=== PATIENT | male | born 1960 | race Caucasian/White ===

== ENCOUNTER 2024-12-11 07:51 | Outpatient (CLI) | payer BC, SELFPAY | END 2024-12-11 07:52 | disposition home or self-care (01) | LOC: CT 07:51 | PROVIDERS: Visit Provider Orthopaedic Surgery Sports Medicine | DX: M19.011 Primary osteoarthritis, right shoulder (principal); Z01.818 Encounter for other preprocedural examination | CPT/HCPCS: 73200 ==

== ENCOUNTER 2025-01-17 07:02 | Day surgery (SDC) | payer BC, SELFPAY ==
[2025-01-17] VITALS (20 sets, daily range): BP systolic 121–145; BP diastolic 72–95; PULSE 43–64; RESP 14–20; TEMP 35.8–36.7; O2SAT 93–97; BMI 26.4
--- NOTE | 2025-01-17 07:28 | W.PM.H&PU ---
History & Physical Update History & Physical Update H&P Reviewed and patient assessed: No changes noted
[2025-01-17] MEDS: LACTATED RINGERS 1000 ML 1,000 ML 100 ML IV ×2 (08:00→10:23)
[2025-01-17] MEDS: SODIUM CHLORIDE 0.9 % (FLUSH) 10 ML SYRINGE IVF (08:00)
[2025-01-17] MEDS: OXYCODONE (CR) 10 MG TAB.ER.12H PO (08:08)
[2025-01-17] MEDS: ACETAMINOPHEN 500 MG TABLET 1000 MG PO (08:08)
[2025-01-17] MEDS: MIDAZOLAM HCL 1 MG/ML inj IVP (08:12)
[2025-01-17] MEDS: TRANEXAMIC ACID 100 MG/ML INJ 1000 MG IV (09:28)
--- NOTE | 2025-01-17 11:30 | P.ORPRC_ITS ---
Procedure Note Date of procedure: 01/17/25 Procedure: PREOPERATIVE DIAGNOSIS: 1. Right shoulder osteoarthrosis, primary, severe POSTOPERATIVE DIAGNOSIS: 1. Right shoulder osteoarthrosis, primary, severe 2. Right shoulder long head of biceps tendinopathy / tenosynovitis PROCEDURE: 1. Right total shoulder arthroplasty-anatomic. 2. Right shoulder long head of biceps open tenodesis SURGEON: Michael Valdez MD. ENVIRONMENTAL SERVICES COORDINATOR: Bryan FINLEY - Of note, a skilled public aid eligibility assistant was critical for this case to aid in patient positioning, tissue retraction, limb manipulation/positioning, awareness of and protection of critical structures, and closure. ANESTHESIA: General plus interscalene block EBL: 200 mL IMPLANTS: [place] INHANCE: XL Blazer. 54 x 19 mm centered humeral head with centralized Brito taper; XL glenoid component (cemented ring) - metal central peg COMPLICATIONS: None evident INDICATIONS: The patient is a pleasant 64-year-old male who has experienced severe right shoulder pain and difficulty with use. Workup included x-rays which revealed severe osteoarthrosis. Physical exam was consistent with associated pain. Given the deformity, the dysfunction, and the pain, recommendation was made for surgery. DESCRIPTION OF PROCEDURE: Following a thorough discussion of risks, benefits, and alternatives, consent was obtained and the right shoulder was marked. The patient was brought to the operating room and placed supine on the operating table. Induction of anesthesia was undertaken. 2 g IV Ancef and 1 g tranexamic acid was administered within 1 hr of incision preoperatively. Appropriate time-out was performed identifying proper patient, site, and procedure. The operative extremity was prepped and draped in the appropriate sterile fashion using ChloraPrep after the patient was positioned in the beach chair with head in neutral alignment and all bony prominences well padded. A longitudinal incision was made for deltopectoral approach. Deltoid and cephalic vein were retracted laterally but eventually the vein was cauterized due to a small rent in the vessel. The clavipectoral fascia was identified and divided longitudinally staying lateral to the conjoined tendon / coracoid. The conjoined tendon was protected with a blunt Hohmann. The long head of the biceps tendon was identified and found to have significant flattening, partial-thickness tearing, and significant tenosynovitis. The tenodesis was performed suturing it to the pectoralis major tendon at their confluence. The upper 1/4 of the pectoralis major was released from its insertion. The superior portion of the rotator cuff was inspected and found to have good integrity. The subscapularis was released from its lesser tuberosity via a tenotomy down through the 3 sisters which were cauterized. After releasing the subscapularis, the capsule was released from the inferior humeral neck allowing us to remove the inferior humeral head osteophyte. The subscapularis was also released from the superior glenohumeral ligament and middle glenohumeral ligament. It was then tucked into the subscapularis fossa anteriorly, and we turned our attention to the humeral preparation. The humerus was dislocated, and humeral head cut performed paying attention to the patient's bad river band version anatomy and consistet with the preop plan. The guide pin was drilled through the lateral humeral cortex, a Blazer trial consistent with the preop plan was applied, and the humerus was planed. The humerus was then protected with the Blazer and attention was turned to the glenoid preparation. The humerus was retracted posteriorly. The subscap was protected anteriorly and the labrum was released along the glenoid anterior, inferior and posteroinferior regions via combination of Bovie cautery or 15 blade. Based on the preoperative CT scan of the shoulder, the shoulder was found have approximately 21 ? of retroversion. The preop plan targeted a resting position of 8 ? retroversion upon completion of the glenoid prep. The 3D printed guide was applied, the guide pin was placed and the subsequent preparation performed with Reamer down to cortical/subchondral bone. Cement was mixed on the back table and filled the ring after thorough irrigation with normal saline was performed followed by suction and drying of the bone. The real implant was opened and inserted with excellent surrounding fit circumferentially. We then turned our attention back to the humerus. Consistent with the preop planning, the appropriate head was selected, trialed, and found have an excellent fixation and tension. 50% bounce-back was visualized with posterior directed force, internal rotation was achieved to 60? comfortably while the shoulder was abducted to 90?, and the conjoined tendon had good tension. At this stage, a 3 min Betadine soak was performed followed by a thorough irrigation with normal saline. Subscapularis was reapproximated with # 1 PDS (x 4). The rotator interval was reapproximated as well. The deltopectoral interval was reapproximated with 0 Vicryl, subcutaneous and subcuticular closure was then performed with number 2-0 Vicryl and 4-0 Monocryl, respectively. A skilled public aid eligibility assistant was critical for this case to aid in patient positioning, tissue retraction, bone exposure, limb manipulation/positioning, shoulder dislocation/relocation, patient safety, and closure. PLAN: 1. Sling much of the time to operative extremity. May come out of this for elbow, forearm, wrist, and digit range of motion and pendulums, or when sedentary. 2. PT/OT consults for education and assistance. 3. Tylenol, Ibuprofen, and/or Oxycodone for analgesics PRN. 4. Early ambulation encouraged.
--- NOTE | 2025-01-17 11:54 | P.ANES_ITS ---
Anesthesia Charges Start Date/Time Anesthesia Start Date: 01/17/25 Anesthesia Start Time: 09:09 Stop Date/Time Anesthesia Stop Date: 01/17/25 Anesthesia Stop Time: 11:56 Coding CPT Codes CPT Codes: ANESTH SHOULDER REPLACEMENT - 86952 ([id number]) P2 - PATIENT W/MILD SYST DISEASE, QK - STUDY ASSISTANT 2-4 CNCRNT ANES PROC, QX - CHIEF LIBRARIAN CIRCULATION DEPARTMENT SVC W/ MD MED DIRECTION
--- NOTE | 2025-01-17 11:54 | W.ANESCHARGE ---
Anesthesia Charges Start Date/Time Anesthesia Start Date: 01/17/25 Anesthesia Start Time: 09:09 Stop Date/Time Anesthesia Stop Date: 01/17/25 Anesthesia Stop Time: 11:56 Coding CPT Codes CPT Codes: ANESTH SHOULDER REPLACEMENT - 43872 ([id number]) P2 - PATIENT W/MILD SYST DISEASE, QK - EDUCATION PROGRAM MANAGER 2-4 CNCRNT ANES PROC, QX - PATTERN CLEANER SVC W/ MD MED DIRECTION
--- NOTE | 2025-01-17 12:01 | CRLHL7_ITS ---
For Patients: As a result of the Cures Act, medical imaging exams and procedure reports are released immediately into your electronic medical record. You may view this report before your referring provider. If you have questions, please contact your health care provider. Indication: Postop Technique: Two views right shoulder Findings/Impression: Hardware from a right shoulder arthroplasty is in satisfactory position. Bone alignment is normal. No sign of acute fracture. Postop changes are within normal limits. Dictated by Jay Bolanos MD @ 01/19/2025 12:36:00 PM (Electronically Signed)
--- NOTE | 2025-01-17 12:36 | P.NB_ITS ---
Nerve Block Nerve Block Time Seen by Provider: 08:15 Date Seen: 01/17/25 Type of block requested by surgeon for post-operative analgesia: supraclavicular Side: right Time out performed: Yes Verification of patient name: Yes Verification of date of : Yes Site marking: site marked Name of person performing procedure: José Miguel Continuous monitoring Was continuous monitoring of O2 sat, B/P, parts identification technician, recorded every 15 minutes?: Yes Procedure Checklist: sterile prep, needles and gloves Ultrasound guided. Images saved: Yes Medications given in 5ml increments after negative aspiration: Marcaine %: 0.25 mL: 5 Needle gauge: 22 and Exparel mL: 10 Patient tolerated procedure well: Yes Block Charges Block Charge (with Pro Fee): Brachial Plexus Use of Ultrasound Machine for Block: Yes- US Guidance/pain block
--- NOTE | 2025-01-17 12:37 | P.ANES_ITS ---
Anesthesia Charges Start Date/Time Anesthesia Start Date: 01/17/25 Anesthesia Start Time: 09:09 Stop Date/Time Anesthesia Stop Date: 01/17/25 Anesthesia Stop Time: 11:56 Coding CPT Codes CPT Codes: ANESTH SHOULDER REPLACEMENT - [id number] ([id number]) P2 - PATIENT W/MILD SYST DISEASE, QK - STEREOTYPER APPRENTICE 2-4 CNCRNT ANES PROC, QX - REFERRAL COORDINATOR SVC W/ MD MED DIRECTION
--- NOTE | 2025-01-17 12:37 | W.ANESCHARGE ---
Anesthesia Charges Start Date/Time Anesthesia Start Date: 01/17/25 Anesthesia Start Time: 09:09 Stop Date/Time Anesthesia Stop Date: 01/17/25 Anesthesia Stop Time: 11:56 Coding CPT Codes CPT Codes: ANESTH SHOULDER REPLACEMENT - 15539 ([id number]) P2 - PATIENT W/MILD SYST DISEASE, QK - PHYSICAL MEDICINE SPECIALIST 2-4 CNCRNT ANES PROC, QX - RECRUITMENT SPECIALIST SVC W/ MD MED DIRECTION
[2025-01-17] MEDS: LACTATED RINGERS 1000 ML 1,000 ML 50 ML IV (13:39)
[2025-01-17] MEDS: ONDANSETRON 2 MG/ML inj 4 MG IVP (14:22)
--- NOTE | 2025-01-17 15:55 | SUR.PHASEII ---
Pt is being evaluated By Pt to see how he can manage stairs since he is still feeling groggy and periodically nauseated and potentially a bit unsteady.
--- NOTE | 2025-01-17 16:11 | REH.PT ---
OT requested PT assessment of safety on stairs post op TSA. No charge - observed stair training - patient able to ascend and descend 2 x 4 steps with right rail with GB with CGA and no loss of balance. Patient's nausea and lightheadedness create some gait path lateral deviation but patient with 's assist should be able to dc and get into his home and sleep on main level once medically cleared.
--- NOTE | 2025-01-17 16:12 | SUR.PHASEII ---
Pt was assessed by PT. Did well. He was unable to urinate. Did not feel any urge. Called Dr. Valdez to inform. He stated his permission to release pt to home and advise him to call Ortho if he wasn't able to urinate later this evening. I instructed pt and his of this, monitor for any sense of fullness or lack of voiding by early evening.
== END 2025-01-17 16:19 | disposition home or self-care (01) ==
LOC: OR 07:03
PROVIDERS: Visit Provider Orthopaedic Surgery Sports Medicine
PROC: 0RRJ0JZ Replacement of Right Shoulder Joint with Synthetic Substitute, Open Approach (ICD-10-PCS; CPT 23472; principal; 2025-01-17 09:00)
DX: M19.011 Primary osteoarthritis, right shoulder (principal); M75.21 Bicipital tendinitis, right shoulder; G89.18 Other acute postprocedural pain
CPT/HCPCS: 23472; 23430; 01638; 64415; 73030; 76942; 97165; 97530; 97535; A9270; C1776; J0665; J0666; J0690; J1100; J2250; J2405; J2704; J2710; J3010; J3490; J7120; L3670